=== PATIENT | male | born 1985 | race Caucasian/White ===

== ENCOUNTER 2017-07-17 15:40 | Emergency (ER) | payer OTHER ==
[2017-07-17 15:48] VITALS: BP 130/88
[2017-07-17] MEDS ORDERED: Albuterol 2.5 MG/3 ML NEB.SOL* (0.083%) INH ONE (16:26)
--- NOTE | 2017-07-17 16:34 | UC ---
Respiratory Complaint HPI - HPI Summary HPI Summary: Patient presents with complaints of two day onset persistent cough, small amount of sputum production. History of childhood asthma. He reports left sided rib pain that is sharp and intermittent and only occurs when he coughs. He denies fever, chills, chest pain, back pain, nausea, vomiting or diarrhea. - History of Current Complaint Chief Complaint: UCRespiratory Stated Complaint: RESP COMPLAINT Time Seen by Provider: 07/17/17 16:09 Hx Obtained From: Patient Onset/Duration: Gradual Onset, Lasting Days Timing: Intermittent Episodes Severity Currently: Moderate Character: Cough: Productive Aggravating Factors: Deep Breaths, Recumbent Position Alleviating Factors: Upright Position, Spontaneous Resolution Associated Signs And Symptoms: Positive: Pleuritic Chest Pain, Wheezing - Risk Factors Pulmonary Embolism Risk Factors: Negative Cardiac Risk Factors: Negative Pseudomonas Risk Factors: Negative Tuberculosis Risk Factors: Negative - Allergies/Home Medications Allergies/Adverse Reactions: Allergies Allergy/AdvReac Type Severity Reaction Status Date / Time Morphine Allergy Intermediate Itching Verified 01/03/15 15:18 Home Medications: Home Medications Ibuprofen [Advil] 1,200 mg PO 07/17/17 [History] PMH/Surg Hx/FS Hx/Imm Hx Previously Healthy: Yes Respiratory History: Asthma - Surgical History Surgical History: Yes Surgery Procedure, Year, and Place: appe at 14 years old - Family History Known Family History: Positive: Hypertension - Social History Occupation: Employed Full-time Lives: Alone Alcohol Use: Occasionally Substance Use Type: None Smoking Status (MU): Former Smoker Review of Systems Respiratory: Cough All Other Systems Reviewed And Are Negative: Yes Physical Exam Triage Information Reviewed: Yes Appearance: Well-Appearing Vital Signs: Initial Vital Signs Temp 97.0 F 07/17/17 15:43 Pulse 95 07/17/17 15:43 Resp 18 07/17/17 15:43 BP 130/88 07/17/17 15:43 Pulse Ox 97 07/17/17 15:43 Vital Signs Reviewed: Yes Eye Exam: Normal ENT Exam: Normal Neck exam: Normal Respiratory: Positive: Rhonchi, Wheezing Cardiovascular Exam: Normal Skin Exam: Normal UC Diagnostic Evaluation - Laboratory O2 Sat by Pulse Oximetry: 97 Respiratory Course/Dx - Course Course Of Treatment: Patient presents with past medical of asthma. He presents with complaints of 2 day onset persistent coughing. He has audible wheezing with expirations. He recieived an albuterol neb treatment in the departments. He had a chest xray that was negative for pneumonia, and no rib fractures however I recommend that he have a repeat chest xray in one month for comparison. He presents with acute bronchitis and exacerbation of asthma. He was stabel VSm abd a nontoxic appearance. He was given RX for augmentin, prednisone, and albuterol. Instructed to return if symtpoms worsen or follow up with PCP. He verbalizd understanding of all the discharge instruction and was in agreement of the discharge plan. - Differential Dx/Diagnosis Differential Diagnosis/HQI/PQRI: Asthma, Bronchitis Provider Diagnoses: acute bronchitis. exacerrbation of asthma Discharge - Discharge Plan Condition: Stable Disposition: HOME Prescriptions: Albuterol HFA INHALER* [Ventolin HFA Inhaler*] 1 puff INH Q4H PRN #1 mdi PRN Reason: asthma Amoxicillin/Clavulanate TAB* [Augmentin TAB 500 mg*] 500 mg PO BID #20 tab predniSONE TAB* [Deltasone TAB*] 20 mg PO DAILY #5 tab Patient Education Materials: Asthma (ED), Acute Bronchitis (ED) Referrals: No Primary Care Phys,NOPCP [Primary Care Provider] - [facility] [place]] Additional Instructions: although your chest xray was read as negative, I recommend that you have a repeat chest xray within one month for comparison to ensure that no new fingind develop.
--- NOTE | 2017-07-17 16:46 | RAD ---
Indication: Cough with left rib pain. 3 views of left ribs demonstrate no fracture. No pneumothorax is noted on the PA view of the chest. IMPRESSION: No fracture is identified.
== END 2017-07-17 17:23 | disposition home or self-care (01) ==
LOC: UCEAST 15:40
DX: J45.901 Unspecified asthma with (acute) exacerbation (principal); Z88.5 Allergy status to narcotic agent; Z87.891 Personal history of nicotine dependence
CPT/HCPCS: 99212; G0463

== ENCOUNTER 2017-09-07 17:17 | Emergency (ER) | payer OTHER ==
[2017-09-07 17:43] VITALS: BP 123/70
[2017-09-07] MEDS ORDERED: Ipratropium 0.5MG/2.5ML NEB* 0.5 MG/2.5 ML NEB.SOLN INH ONE (17:59)
[2017-09-07] MEDS ORDERED: Albuterol 2.5 MG/3 ML NEB.SOL* (0.083%) INH ONE (17:59)
--- NOTE | 2017-09-07 19:33 | UC ---
Throat Pain/Nasal Srinivasan HPI - HPI Summary HPI Summary: ONE WEEK OF CONGESTION, COUGH, TODAY HAS BILATERAL EYE PURULENT DRAINAGE. - History of Current Complaint Chief Complaint: UCGeneralIllness Stated Complaint: DIFFICULTY BREATHING,COUGH,COLD,EYE IRRITATION Time Seen by Provider: 09/07/17 17:59 Hx Obtained From: Patient Onset/Duration: Gradual Onset, Lasting Weeks, Still Present Severity: Moderate Cough: Nonproductive Associated Signs & Symptoms: Positive: Hoarseness, Sinus Discomfort, Nasal Discharge - Epiglottits Risk Factors Epiglottis Risk Factors: Negative - Allergies/Home Medications Allergies/Adverse Reactions: Allergies Allergy/AdvReac Type Severity Reaction Status Date / Time Morphine Allergy Intermediate Itching Verified 09/07/17 17:35 PMH/Surg Hx/FS Hx/Imm Hx Previously Healthy: Yes - Surgical History Surgical History: Yes Surgery Procedure, Year, and Place: appy at 14 years old - Family History Known Family History: Positive: Hypertension - Social History Occupation: Employed Full-time Lives: With Family Alcohol Use: Occasionally Substance Use Type: None Smoking Status (MU): Former Smoker When Did the Patient Quit Smoking/Using Tobacco: 2014 Review of Systems Constitutional: Negative Skin: Negative Eyes: Drainage, Eye Redness ENT: Nasal Discharge, Sinus Congestion, Sinus Pain/Tenderness Respiratory: Cough Cardiovascular: Negative Gastrointestinal: Negative Genitourinary: Negative Motor: Negative Neurovascular: Negative Musculoskeletal: Negative Neurological: Negative Psychological: Negative Is Patient Immunocompromised?: No All Other Systems Reviewed And Are Negative: Yes Physical Exam Triage Information Reviewed: Yes Appearance: No Pain Distress, Well-Nourished, Ill-Appearing Vital Signs: Initial Vital Signs Temp 98.6 F 09/07/17 17:37 Pulse 102 09/07/17 17:37 Resp 20 09/07/17 17:37 BP 123/70 09/07/17 17:37 Pulse Ox 97 09/07/17 17:37 Vital Signs Reviewed: Yes Eyes: Positive: Conjunctiva Inflamed, Discharge ENT: Positive: TM bulging, TM dull, TM red Dental Exam: Normal Neck exam: Normal Neck: Positive: Supple, Nontender, No Lymphadenopathy Respiratory Exam: Normal Respiratory: Positive: Chest non-tender, Lungs clear, Normal breath sounds, No respiratory distress Cardiovascular Exam: Normal Cardiovascular: Positive: RRR, No Murmur, Pulses Normal, Brisk Capillary Refill Abdominal Exam: Normal Abdomen Description: Positive: Nontender, No Organomegaly Musculoskeletal Exam: Normal Musculoskeletal: Positive: Strength Intact Neurological Exam: Normal Psychological Exam: Normal Psychological: Positive: Normal Response To Family Skin Exam: Normal Throat Pain/Nasal Course/Dx - Differential Dx/Diagnosis Differential Diagnosis/HQI/PQRI: Pharyngitis, Sinusitis, Tonsillitis, URI Provider Diagnoses: SINUSITIS; BILATERAL CONJUNCTIVITIS Discharge - Discharge Plan Condition: Stable Disposition: HOME Prescriptions: Amoxicillin/Clavulanate TAB* [Augmentin TAB 875*] 875 mg PO BID #20 tab Tobramycin 0.3% OPHTH.WILLIAM* 1 drop BOTH EYES Q4H #1 btl Patient Education Materials: Sinusitis (ED), Conjunctivitis (ED) Forms: *Work Release Referrals: [facility] [Outside] No Primary Care Phys,NOPCP [Primary Care Provider] -
== END 2017-09-07 19:25 | disposition home or self-care (01) ==
LOC: UCEAST 17:17
DX: J01.90 Acute sinusitis, unspecified (principal); Z88.6 Allergy status to analgesic agent; Z87.891 Personal history of nicotine dependence; H10.9 Unspecified conjunctivitis
CPT/HCPCS: 99212; G0463; J7644

== ENCOUNTER 2017-12-24 20:47 | Emergency (ER) | payer OTHER ==
[2017-12-24] MEDS ORDERED: Acetaminophen TAB* 325 MG PO ONE (23:29)
[2017-12-24] MEDS ORDERED: Ibuprofen TAB* 800 MG PO ONE (23:29)
[2017-12-24] MEDS ORDERED: Oseltamivir CAP* 75 MG CAP PO ONE (23:29)
[2017-12-24] MEDS ORDERED: Albuterol 2.5 MG/3 ML NEB.SOL* (0.083%) INH ONE (23:30)
[2017-12-24] MEDS ORDERED: Albuterol/Ipratropium NEB.SOL* Albuterol 2.5 MG/Ipratropium 0.5 MG 3 ML INH ONE (23:30)
[2017-12-25] MEDS ORDERED: Albuterol HFA INHALER* 8 gm MDI INH ONE (01:02)
[2017-12-25 01:31] VITALS: BP 112/76
--- NOTE | 2017-12-25 06:32 | ED ---
Nelson Gonzales Gabriel, scribed for Elfar, Abdul, MD on 12/25/17 at 0002 . Influenza-Like Illness - HPI Summary HPI Summary: This patient is a 32 year old M presenting to [facility] with a chief complaint of flu like illness since 12-22-17. The patient rates the pain 6/10 in severity. Patient reports myalgia, fever, cough, wheezing, trouble breathing, and weakness. Positive exposure to flu. Hx of asthma. - History of Current Complaint Chief Complaint: EDFluSymptoms Time Seen by Provider: 12/24/17 22:42 Hx Obtained From: Patient Onset/Duration: Lasting Days - 2, Still Present Severity: Moderate Associated Signs & Symptoms: Fever, Myalgia, Cough - Allergy/Home Medications Allergies/Adverse Reactions: Allergies Allergy/AdvReac Type Severity Reaction Status Date / Time MS Morphine [Morphine] Allergy Intermediate Itching Verified 12/24/17 20:51 PMH/Surg Hx/FS Hx/Imm Hx Endocrine/Hematology History: Denies: Hx Diabetes, Hx Thyroid Disease Cardiovascular History: Denies: Hx Hypertension Respiratory History: Reports: Hx Asthma - albuterol prn Denies: Hx Chronic Obstructive Pulmonary Disease (COPD) GI History: Reports: Hx Ulcer - gerd Psychiatric History: Denies: Hx Bipolar Disorder - Surgical History Surgery Procedure, Year, and Place: appy at 14 years old Infectious Disease History: No Infectious Disease History: Denies: Hx Clostridium Difficile, Hx Hepatitis, Hx Human Immunodeficiency Virus (HIV), Hx of Known/Suspected MRSA, Hx Shingles, Hx Tuberculosis, Hx Known/ Suspected VRE, Hx Known/Suspected VRSA, Traveled Outside the [place] in Last 30 Days - Family History Known Family History: Positive: Hypertension Negative: Diabetes, Renal Disease, Respiratory Disease, Seizure Disorder - Social History Alcohol Use: Occasionally Substance Use Type: Reports: None Smoking Status (MU): Former Smoker Review of Systems Positive: Fever Positive: Cough, Other - wheezing Positive: Myalgia Positive: Weakness All Other Systems Reviewed And Are Negative: Yes Physical Exam - Summary Physical Exam Summary: VITAL SIGNS: Reviewed. GENERAL: Patient is a well-developed and nourished male who is lying comfortable in the stretcher. Patient is not in any acute respiratory distress. HEAD AND FACE: No signs of trauma. No ecchymosis, hematomas or skull depressions. No sinus tenderness. EYES: PERRLA, EOMI x 2, No injected conjunctiva, no nystagmus. EARS: Hearing grossly intact. Ear canals and tympanic membranes are within normal limits. MOUTH: Oropharynx within normal limits. NECK: Supple, trachea is midline, no adenopathy, no JVD, no carotid bruit, no c- spine tenderness, neck with full ROM. CHEST: Symmetric, no tenderness at palpation LUNGS: No wheezing or crackles. harsh vesicular breathing CVS: Regular rate and rhythm, S1 and S2 present, no murmurs or gallops appreciated. ABDOMEN: Soft, non-tender. No signs of distention. No rebound no guarding, and no masses palpated. Bowel sounds are normal. EXTREMITIES: FROM in all major joints, no edema, no cyanosis or clubbing. NEURO: Alert and oriented x 3. No acute neurological deficits. Speech is normal and follows commands. SKIN: Dry and warm Triage Information Reviewed: Yes Vital Signs On Initial Exam: Initial Vitals Temp Pulse Resp BP Pulse Ox 102.0 F 117 20 104/73 92 12/24/17 20:49 12/24/17 20:49 12/24/17 20:49 12/24/17 20:49 12/24/17 20:49 Vital Signs Reviewed: Yes Diagnostics - Vital Signs Vital Signs Temp Pulse Resp BP Pulse Ox 12/24/17 20:49 102.0 F 117 20 104/73 92 - Laboratory Lab Results: Lab Results 12/24/17 Range/Units 21:02 Influenza A (Rapid) Negative (Negative) Influenza B (Rapid) Positive H (Negative) Lab Statement: Any lab studies that have been ordered have been reviewed, and results considered in the medical decision making process. - Radiology CXR Radiology Interpretation Completed By: Radiologist - negative examination Re-Evaluation - Re-Evaluation First Eval Re-Evaluation Time: 01:04 Change: Improved - Patient is feeling better Flu Symptom Course/Dx - Course Assessment/Plan: This patient is a 32 year old M presenting to [facility] with a chief complaint of flu like illness since 12-22-17. The patient rates the pain 6/ 10 in severity. Patient reports myalgia, fever, cough, wheezing, trouble breathing, and weakness. Positive exposure to flu. Hx of asthma. CXR reveals, negative examination. Test results with no significant abnormalities except for a positive test for influenza B. In the ED course the patient was given Tamiflu, motrin, tylenol, ventolin, and duoneb. Dx influenza B. Patient will be discharged with prescription for Tamiflu and follow up from PCP. The patient is agreeable with this plan. - Diagnoses Provider Diagnoses: Influenza B Discharge - Discharge Plan Condition: Stable Disposition: HOME Prescriptions: Ibuprofen TAB* [Motrin TAB* 800 MG] 800 mg PO Q6H PRN #30 tab PRN Reason: Fever/Pain Oseltamivir CAP* [Tamiflu CAP*] 75 mg PO BID #10 cap Patient Education Materials: Ibuprofen (By mouth), Oseltamivir (By mouth), Influenza (ED) Referrals: [facility] [place] [facility] [Outside] - 7 Days No Primary Care Phys,NOPCP [Primary Care Provider] - Additional Instructions: RETURN TO EMERGENCY DEPARTMENT FOR ANY NEW OR WORSENING SYMPTOMS The documentation as recorded by the Nelson lyon Gabriel accurately reflects the service I personally performed and the decisions made by Sanjay kevin Abdul, MD.
--- NOTE | 2017-12-25 07:11 | RAD ---
INDICATION: Cough COMPARISON: March 16, 2008 TECHNIQUE: An AP portable view obtained at 2340 hours is submitted. The examination is expiratory with apical lordotic positioning. FINDINGS: Bones/Soft Tissues: There are no acute bony findings. Cardiomediastinal: The cardiomediastinal silhouette is normal. Lungs: There are no infiltrates. There is mild vascular crowding Pleura: There are no pleural effusions. Other: None IMPRESSION: NO ACTIVE DISEASE.
== END 2017-12-25 01:30 | disposition home or self-care (01) ==
LOC: ED 20:47
DX: J11.1 Influenza due to unidentified influenza virus with other respiratory manifestations (principal); R50.9 Fever, unspecified; R05 Cough; R06.2 Wheezing; R53.1 Weakness; Z87.891 Personal history of nicotine dependence
CPT/HCPCS: 71045; 87502; 99284; A9270-GY

== ENCOUNTER → 2019-02-14 20:10 | Emergency (ER) | payer OTHER ==
[~2019-02-14 20:10] MED LIST: Cyclobenzaprine TAB* 10 MG PO ONE; Ketorolac INJ* 30 MG/ML 1 ML VIAL IM ONE
--- NOTE | 2019-02-14 22:05 | ED ---
Upper Extremity Pain - HPI Summary HPI Summary: Patient complains of waking up with intense left shoulder pain 2 days ago. Denies trauma, heavy lifting, history of same pain. States pain in left shoulder with elevation of arm above shoulder level. Denies any other symptoms injury or pain. - History of Current Complaint Chief Complaint: EDShoulderClavicleInj Stated Complaint: LT SHOULDER INJURY PER PT Time Seen by Provider: 02/14/19 21:41 Hx Obtained From: Patient Mechanism Of Injury: Unknown Onset/Duration: Started Days Ago Timing: Constant Severity Initially: Moderate Severity Currently: Moderate Pain Location: Shoulder Character: Aching, Throbbing Aggravating Factor(s): Movement, Lifting, Abduction Alleviating Factor(s): Rest Associated Signs & Symptoms: Positive: Negative - Allergies/Home Medications Allergies/Adverse Reactions: Allergies Allergy/AdvReac Type Severity Reaction Status Date / Time morphine Allergy Itching Verified 02/14/19 20:30 PMH/Surg Hx/FS Hx/Imm Hx Endocrine/Hematology History: Denies: Hx Diabetes, Hx Thyroid Disease Cardiovascular History: Denies: Hx Hypertension Respiratory History: Reports: Hx Asthma - albuterol prn Denies: Hx Chronic Obstructive Pulmonary Disease (COPD) GI History: Reports: Hx Ulcer - gerd History: Denies: Hx Renal Disease Sensory History: Reports: Hx Eye Injury Denies: Hx Eye Prosthesis Opthamlomology History: Denies: Hx Legally Blind EENT History: Denies: Hx Deafness Neurological History: Denies: Hx Dementia Psychiatric History: Reports: Hx Anxiety Denies: Hx Bipolar Disorder - Surgical History Surgery Procedure, Year, and Place: appy at 14 years old Infectious Disease History: No Infectious Disease History: Denies: Hx Clostridium Difficile, Hx Hepatitis, Hx Human Immunodeficiency Virus (HIV), Hx of Known/Suspected MRSA, Hx Shingles, Hx Tuberculosis, Hx Known/ Suspected VRE, Hx Known/Suspected VRSA, Traveled Outside the [place] in Last 30 Days - Family History Known Family History: Positive: Hypertension, Other - FMHx of breast cancer Negative: Diabetes, Renal Disease, Respiratory Disease, Seizure Disorder - Social History Alcohol Use: Occasionally Substance Use Type: Reports: None Smoking Status (MU): Light Every Day Tobacco Smoker Review of Systems Constitutional: Negative Eyes: Negative ENT: Negative Cardiovascular: Negative Respiratory: Negative Gastrointestinal: Negative Genitourinary: Negative Positive: Arthralgia Skin: Negative Neurological: Negative Psychological: Normal All Other Systems Reviewed And Are Negative: Yes Physical Exam - Summary Physical Exam Summary: Pain with palpation of left shoulder. Pain with abduction of left arm above shoulder level. Molding Supervisor strength intact distally on left upper extremity. PMS intact left upper extremity. No obvious deformity, swelling, erythema, ecchymosis noted to left shoulder. Triage Information Reviewed: Yes Vital Signs On Initial Exam: Initial Vitals Temp Pulse Resp BP Pulse Ox 97.8 F 98 16 127/72 96 02/14/19 20:25 02/14/19 20:25 02/14/19 20:25 02/14/19 20:25 02/14/19 20:25 Vital Signs Reviewed: Yes Appearance: Positive: Well-Appearing Skin: Positive: Warm Head/Face: Positive: Normal Head/Face Inspection Eyes: Positive: Normal Neck: Positive: Supple Respiratory/Lung Sounds: Positive: Clear to Auscultation Cardiovascular: Positive: Normal Abdomen Description: Positive: Nontender Musculoskeletal: Positive: Normal Neurological: Positive: Normal Psychiatric: Positive: Normal AVPU Assessment: Alert - [place] Coma Scale Best Eye Response: 4 - Spontaneous Best Motor Response: 6 - Obeys Commands Best Verbal Response: 5 - Oriented Coma Scale Total: 15 Diagnostics - Vital Signs Vital Signs Temp Pulse Resp BP Pulse Ox 02/14/19 20:25 97.8 F 98 16 127/72 96 - Laboratory Lab Statement: Any lab studies that have been ordered have been reviewed, and results considered in the medical decision making process. Course/Dx - Course Course Of Treatment: Patient complains of waking up with intense left shoulder pain 2 days ago. Denies trauma, heavy lifting, history of same pain. States pain in left shoulder with elevation of arm above shoulder level. Denies any other symptoms injury or pain. Physical exam: Pain with palpation of left shoulder. Pain with abduction of left arm above shoulder level. Molding Supervisor strength intact distally on left upper extremity. PMS intact left upper extremity. No obvious deformity, swelling, erythema, ecchymosis noted to left shoulder. Vital signs within normal limits. Diagnosis muscle spasm. Rx for Flexeril. Advised patient to continue ibuprofen. Follow up with orthopedics if pain persists. - Diagnoses Provider Diagnoses: Muscle spasm Discharge - Sign-Out/Discharge Documenting (check all that apply): Patient Departure Patient Received Moderate/Deep Sedation with Procedure: No - Discharge Plan Condition: Stable Disposition: HOME Prescriptions: Cyclobenzaprine TAB* [Flexeril 10 MG TAB*] 10 mg PO TID PRN 4 Days #12 tab PRN Reason: Pain Diazepam TAB(*) [Valium TAB(*)] 5 mg PO TID PRN 2 Days #6 tab MDD 3 tabs PRN Reason: Pain Patient Education Materials: Muscle Spasm (ED) Referrals: Brianne Curry MD [Primary Care Provider] - Obi Barr MD [Medical Doctor] - Additional Instructions: Take Flexeril as directed during the day for muscle relaxer. Take Valium at in the evening when you get home as muscle relaxer. Alternate ibuprofen 800 mg of Tylenol 950 mg every 3 hours to help with shoulder pain. If pain persists more than a few days follow-up with orthopedics Dr. Barr for further evaluation. Return to the ED for any new or worsening symptoms. - Billing Disposition and Condition Condition: STABLE Disposition: Home
[2019-02-14 22:12] VITALS: BP 119/75
== END | disposition home or self-care (01) ==
LOC: ED 20:10
DX: M62.838 Other muscle spasm (principal); M25.512 Pain in left shoulder; J45.909 Unspecified asthma, uncomplicated; K21.9 Gastro-esophageal reflux disease without esophagitis; F41.9 Anxiety disorder, unspecified; Z88.5 Allergy status to narcotic agent; F17.200 Nicotine dependence, unspecified, uncomplicated
CPT/HCPCS: 96372; 99282; A9270-GY; J1885